=== PATIENT | female | born 1950 | race Caucasian/White ===

== ENCOUNTER → 2018-12-22 | Outpatient (CLI) | payer BC | LOC: CIMAGING 08:48 | PROVIDERS: ATTEND Family Medicine | DX: L03.311 Cellulitis of abdominal wall (principal) | CPT/HCPCS: 76705-PO ==

== ENCOUNTER → 2019-01-05 | Outpatient (CLI) | payer BC ==
[~2019-01-05] MED LIST: IOPAMIDOL (ISOVUE-300) 100 ML BTL ONE
== END ==
LOC: FIMAGING 10:43
PROVIDERS: ATTEND Surgery
DX: L94.9 Localized connective tissue disorder, unspecified (principal)
CPT/HCPCS: 82565-PO; Q9967